=== PATIENT | male | born 1970 | race Caucasian/White ===

== ENCOUNTER 2019-03-03 08:37 | Emergency (ER) | payer OTHER, SELFPAY ==
[2019-03-03 08:38] VITALS: BP 163/100; PULSE 57; RESP 19; TEMP 36.2; O2SAT 97; BMI 32.3
--- NOTE | 2019-03-03 08:43 | CT_ITS ---
STUDY: CT ABDOMEN AND PELVIS WITHOUT CONTRAST REASON FOR EXAM: Male, 49 years old. Right-sided flank pain with radiation towards the groin. RADIATION DOSAGE (If Supplied By Facility): CTDIvol = ( 18.37 ) mGy, DLP = ( 959.06 ) mGycm TECHNIQUE: Transaxial images were obtained from the dome of the diaphragm to the symphysis pubis without oral contrast, and without intravenous contrast. Sagittal and coronal images were reconstructed. Individualized dose optimization techniques were used for this CT. COMPARISON: None. FINDINGS: Minimal degree of increased markings at the lung bases suggestive of bibasilar atelectasis. The visualized portions of the heart are within normal limits. Normal liver. Normal gallbladder and extrahepatic biliary system. Normal spleen. Normal pancreas. Normal bilateral adrenal glands. Mild degree of right perinephric and periureteric stranding. Mild right hydronephrosis and hydroureter due to a 3.5 mm calculus at the right ureterovesical junction as it enters the urinary bladder. Normal left kidney. Normal visualized stomach. Normal small intestine. Normal colon. The appendix is visualized and appears normal. There is scattered atherosclerotic calcification of the abdominal aorta, without a demonstrated aneurysm. Normal inferior vena cava. Normal retroperitoneum. Normal urinary bladder. Small bilateral fat-containing inguinal hernias. Straightening of the normal lumbar lordosis. Disc space narrowing and disc degeneration at the L5-S1 level. CT/Abdomen/Pelvis without Cont IMPRESSION: 3.5 mm calculus at the right ureterovesical junction as it enters the urinary bladder causing mild right perinephric and periureteric stranding and hydronephrosis. Electronically Signed: Kris Augustine, at 9:39 EDT , Service support ,
--- NOTE | 2019-03-03 08:44 | ED.DCSUM_ITS ---
History of Present Illness Chief Complaint: Abd Pain Informant: Patient Onset: Today Context: Sudden Onset Timing: Continuous Current Severity: Mild Maximum Severity: Moderate Narrative: The patient presents to the emergency department with rather acute onset pain in his right lower quadrant that radiates to his right back. Patient states that he woke this morning in his normal state of health. He states that he was driving to work. He states he got rather intense pain that radiated into his testicles. He was nauseated without vomiting. He states the pain has significantly subsided. He is never had pain like this before. He denies any dysuria or hematuria. He is no history of abdominal surgery. He denies any fevers or chills. Prior similar symptoms: No Recent Illness/Hospitalization: No Past Medical History - Allergies and Home Meds Allergies/Adverse Reactions: Allergies No Known Allergies Allergy (Verified 03/03/19 08:38) Primary Care Physician: Armond Hennessy MD [STAFF PHYSICIAN] - Prior records reviewed: Yes Past Medical History: - - Hypertension, hyperlipidemia Surgical History: no surgical history Review of Systems General: Denies: Chills, Fever, Sweats Eyes: Denies: Visual changes - bilaterally, Diplopia ENT: Denies: Rhinorrhea, Sore throat Cardiovascular: Denies: Chest pain, Palpitations Respiratory: Denies: Dyspnea, Cough, Dyspnea on exertion Gastrointestinal: Reports: Abdominal pain, Nausea. Denies: Vomiting, Diarrhea, Melena, Hematochezia Genitourinary: Denies: Dysuria, Hematuria, Frequency Musculoskeletal: Reports: Back pain. Denies: Extremity Pain Skin: Denies: Rash, Wounds Neurological: Denies: Headache, Weakness, Numbness Physical Exam Vital Signs/Narrative: Vital Signs Temp Pulse Resp BP Pulse Ox 03/03/19 08:38 97.2 F L 57 L 19 H 163/100 H 97 Inital Vital Signs reviewed: Yes General: Well nourished, Well developed, No Acute Distress Head: Normocephalic, Atraumatic Eyes: Perrl, EOMI ENT: Moist mucous membranes, No rhinorrhea Neck: Supple, Nontender Cardiovascular: Regular rate, Regular rhythm, No murmurs Respiratory: No distress, CTA bilaterally, Chest nontender Abdomen: Soft, Nontender, Nondistended, Normal bowel sounds Back: Nontender, Normal Inspection Extremities: Nontender, No edema Skin: Normal color, No rash Neurological: Alert, Oriented x3, Cranial nerves II-XII grossly intact, Normal Strength, Normal Sensation Psychological: Normal affect, Normal Mood Diagnostic/Tx/Re-eval Abnormal Lab Results 03/03/19 03/03/19 03/03/19 08:50 08:57 08:57 WBC 11.3 H RBC 5.01 Hgb 16.3 Hct 47.3 MCV 94.4 H MCH 32.5 H MCHC 34.5 RDW Std Deviation 45.4 H RDW Coeff of [place] 13.1 Plt Count 345 MPV 9.4 Immature Gran % (Auto) 0.400 Neut % (Auto) 68.9 Lymph % (Auto) 22.6 [place] % (Auto) 6.6 Eos % (Auto) 1.1 Baso % (Auto) 0.4 Absolute Neuts (auto) 7.8 H Absolute Lymphs (auto) 2.56 Nucleated RBC % 0 Sodium 141 Potassium 4.0 Chloride 107 Carbon Dioxide 28.0 Anion Gap 6 BUN 17 Creatinine 1.22 Estim Creat Clear Calc 74.85 Est GFR (MDRD) Af Amer 82 Est GFR (MDRD) Non-Af 68 BUN/Creatinine Ratio 13.9 Glucose 124 H Calcium 8.9 Urine Color Yellow Urine Clarity Cloudy Urine pH 5.0 Ur Specific [place] 1.025 Urine Protein 30 H Urine Glucose (UA) Normal Urine Ketones 5 H Urine Occult Blood 250 H Urine Nitrite Negative Urine Bilirubin Negative Urine Urobilinogen Normal Ur Leukocyte Esterase 25 H Urine RBC 50-100 SEEN Urine WBC 0-5 SEEN Ur Squamous Epith Cells 0-5 SEEN Urine Bacteria RARE Urine Mucus 0 SEEN Clinical Impression(s) from Imaging Studies Abdomen/Pelvis CT 03/03/19 08:43 IMPRESSION: 3.5 mm calculus at the right ureterovesical junction as it enters the urinary bladder causing mild right perinephric and periureteric stranding and hydronephrosis. Electronically Signed: Kris Augustine, at 9:39 EDT , Service support , - Medical Decision Making The patient symptoms do seem consistent with kidney stone. He is actually comfortable on arrival. He was given fluids, antiemetics, and Toradol and continued to remain pain-free. Screening labs were obtained. These are unremarkable. His urine shows evidence of blood, but no evidence of infection. Patient underwent noncontrast CT of the abdomen. He does have an approximately 4 mm stone right at the edge of the bladder on the right if not already in the bladder. Patient is resting comfortably. I do feel that he is safe for outpatient therapy. He will be given a short course of analgesics and antiemetics along with urology follow-up. He was counseled on concerning symptoms and reasons to return. He will be discharged home. Impression 1. 4 mm right UVJ stone ED Disposition - Plan for ED Patient: Instructions: KIDNEY STONE w/ Colic Prescriptions: Hydrocodone Bitart/Apap 5-325 [[place] 5MG-325MG] 1 tab PO Q6H PRN PRN 3 Days #10 tab PRN Reason: Pain Prescription Printed Ondansetron [Zofran Odt] 4 mg PO Q8H PRN PRN #10 tab PRN Reason: Nausea Prescription Printed Referrals: Armond Hennessy MD [STAFF PHYSICIAN] -
[2019-03-03 09:03] LABS: Mucous, Urine 0 SEEN /hpf (<or=2+)
[2019-03-03 09:06] LABS: Absolute Lymphocyte Count 2.56 X10^3/uL (0.83-4.51); Absolute Neutrophil Count 7.8 X10^3/uL (2.0-7.7); Basophil# 0.05 X10^3/uL; Basophil% 0.4 % (0-1); Eosinophil# 0.12 X10^3/uL; Eosinophils% 1.1 % (0-5); Hematocrit 47.3 % (40-54); Hemoglobin 16.3 g/dL (13.0-16.5); Lymphocyte # 2.56 X10^3/ul (4.0); Lymphocyte % 22.6 % (19-41); Mean Corp Hgb Conc 34.5 g/dL (32-36); Mean Corpuscular Hgb 32.5 pg (27.0-32.0); Mean Corpuscular Volume 94.4 fL (80-94); Mean Platelet Vol. 9.4 fl (6.2-12.0); Monocyte# 0.75 X10^3/uL; Monocyte% 6.6 % (0-10); NRBC Flagged by Analyzer 0 % (0-5); Neutrophil % 68.9 % (47-70); Platelet Count 345 K/mm3 (150-450); RBC Distribution Width CV 13.1 % (11.6-14.6); RBC Distribution Width SD 45.4 fl (35.1-43.9); Red Blood Count 5.01 M/mm3 (4.6-6.2); White Blood Count 11.3 K/mm3 (4.4-11.0)
[2019-03-03] MEDS: Ondansetron 4 MG/2 ML Vial IV (09:09)
[2019-03-03] MEDS: 0.9% Normal Saline 1,000 ML 250 ML IV (09:09)
[2019-03-03] MEDS: Ketorolac 30 MG/ML Syringe IV (09:09)
[2019-03-03 09:11] LABS: Color, Urine Yellow (Yellow); Glucose, Dipstick Normal (Normal); Ketone-Dipstick 5 mg/dl (Negative); Leukocyte Esterase-Dipstick 25 /ul (Negative); Nitrite-Dipstick Negative (Negative); Occult Blood-Urine 250 /ul (Negative); Protein-Dipstick 30 mg/dl (Negative); Specific Gravity, Urine 1.025 (1.002-1.030); Urine Bilirubin Dipstick Negative (Negative); Urine Clarity Cloudy (Clear); Urine Urobilinogen Normal (Normal)
[2019-03-03 09:18] LABS: Bacteria RARE /hpf (None Seen); Red Blood Cells-Urine 50-100 SEEN /hpf (0-5); Squamous Epithelial Cells - UA 0-5 SEEN /hpf (0-5); White Blood Cells 0-5 SEEN /hpf (0-5)
[2019-03-03 09:20] LABS: BUN 17 mg/dL (7-18); Creatinine, Serum 1.22 mg/dL (0.70-1.30); EST Glomerular Filtration Rate 68 mL/min (>60); Est Glom Filt Rate - Afr Amer 82 mL/min (>60); Estimated Creatinine Clearance 74.85 ml/min; Glucose 124 mg/dL (74-106)
[2019-03-03 09:21] LABS: Anion Gap 6 (5-15); BUN/Creat Ratio 13.9 RATIO (10-20); Calcium,Total 8.9 mg/dL (8.5-10.1); Chloride 107 mmol/L (98-107); Sodium Level 141 mmol/L (136-145)
[2019-03-03 10:02] VITALS: BP 157/91
== END 2019-03-03 10:06 | disposition home or self-care (01) ==
LOC: ED 08:59
PROVIDERS: Emergency Provider Emergency Medicine; Family Provider Nurse Practitioner; PCP Family Medicine
DX: N13.2 Hydronephrosis with renal and ureteral calculous obstruction (principal); I10 Essential (primary) hypertension; Z79.899 Other long term (current) drug therapy
CPT/HCPCS: 74176; 80048; 81001; 85025; 96361; 96374; 96375; 99283; J7030; A4216; J2405